=== PATIENT | female | born 1965 | race Two or more races ===

== ENCOUNTER 2018-05-05 16:11 | Emergency (ER) | payer BC ==
[~2018-05-05] VITALS: Ht 162.6 cm; Wt 68.0 kg
[2018-05-05 16:17] VITALS: BP_SYST 134
--- NOTE | 2018-05-05 16:20 | NUR ---
Patient to ER bed 01 to gown for evaluation. Side rails up.
--- NOTE | 2018-05-05 16:55 | NUR ---
Pt brought by self, A&Ox4, pt presents to ER with lower back pain radiating to R leg, pain level 7/10, pt denies pain or burning with urination, VS WNL, respirations even and unlabored, cap refill <3.
--- NOTE | 2018-05-05 16:57 | NUR ---
Phyllis Cunningham BILINGUAL NANNY at bedside examining patient
[2018-05-05 17:08] LABS: BILIRUBIN,URINE NEGATIVE (NEGATIVE); CLARITY/URINE SL HAZY (CLEAR); COLOR,URINE YELLOW (YELLOW); GLUCOSE,URINE NEGATIVE (NEGATIVE); KETONES,URINE TRACE (NEGATIVE); LEUKOCYTE ESTERASE ,URINE NEGATIVE (NEGATIVE); NITRITE, URINE NEGATIVE (NEGATIVE); PROTEIN URINE NEGATIVE (NEGATIVE); UROBILINOGEN,URINE 0.2 (0.2-1.0)
[2018-05-05 17:10] LABS: BLOOD, URINE TRACE (NEGATIVE)
[2018-05-05] MEDS ORDERED: DEXAMETHASONE SOD PHOSPHATE 10 MG/ML VIAL IM ONE (17:15)
[2018-05-05] MEDS ORDERED: HYDROcodone/ACETAMIN 7.5-325 MG TAB PO ONE (17:15)
[2018-05-05] MEDS ORDERED: METHOCARBAMOL 500 MG TABLET PO ONE (17:15)
[2018-05-05 17:16] LABS: BACTERIA,URINE RARE /HPF (None Seen); RBC,URINE 0-3 /HPF (0-3); WBC,URINE 0-3 /HPF (0-3)
[2018-05-05 17:17] LABS: MUCUS,URINE None Seen /LPF (None Seen)
[2018-05-05 17:42] VITALS: BP_SYST 132
--- NOTE | 2018-05-05 17:42 | NUR ---
Patient given written and verbal discharge instructions and verbalizes understanding. ER MD discussed with patient the results and treatment provided. Patient in stable condition. ID arm band removed. Rx of Tramadol ,RObaxin ,Naproxen given. Patient educated on pain management and to follow up with PMD. Pain Scale 2/10 tolerable for pt . Opportunity for questions provided and answered. Medication side effect fact sheet provided.
== END 2018-05-05 17:42 | disposition home or self-care (01) ==
LOC: SED 16:11
DX: M54.31 Sciatica, right side (principal); R03.0 Elevated blood-pressure reading, without diagnosis of hypertension
CPT/HCPCS: 81000; 96372; 99283; J1100